=== PATIENT | female | born 1995 | race Caucasian/White ===

== ENCOUNTER 2023-02-06 10:06 | Emergency (ER) | payer BC, SELFPAY ==
--- NOTE | 2023-02-06 10:28 | XR_ITS ---
FINAL REPORT CLINICAL HISTORY: fall right lower leg and ankle pain prior sx to right ankle in 2012 COMPARISON: None FINDINGS: RIGHT ANKLE: Three views of the right ankle were obtained. There is no acute fracture or dislocation. Postoperative changes of the medial malleolus and talus. There are chronic calcifications inferior to the lateral malleolus. There are several loose bodies in the tibiotalar joint. The joint spaces and mortise are intact. There is no soft tissue abnormality. IMPRESSION: Postoperative and degenerative changes without acute bony abnormality. Reviewed, Interpreted and Dictated by Chance Lobo III, MD Transcribed by Park Rondon Authenticated and [facility]
--- NOTE | 2023-02-06 10:28 | XR_ITS ---
FINAL REPORT CLINICAL HISTORY: fall right knee pain and swelling COMPARISON: None FINDINGS: Three views of the right knee reveal a nondisplaced fracture at the base of the tibial spines. The bony alignment is normal. The joint spaces are preserved. There is a moderate joint effusion. No localized soft tissue abnormality is identified. IMPRESSION: Nondisplaced fracture at the base of the tibial spines with a moderate joint effusion. Reviewed, Interpreted and Dictated by Chance Lobo III, MD Transcribed by Park Rondon Authenticated and [facility]
--- NOTE | 2023-02-06 10:28 | XR_ITS ---
FINAL REPORT CLINICAL HISTORY: fall right knee pain and swelling prior sx in 2013 to right ankle COMPARISON: None FINDINGS: 2 views of the right tibia/fibula were obtained. There are postoperative changes of the medial malleolus and talus. There is no acute fracture or dislocation. The joint spaces are intact. There is no soft tissue abnormality. IMPRESSION: Postoperative changes without acute bony abnormality. Reviewed, Interpreted and Dictated by Chance Lobo III, MD Transcribed by Park Rondon Authenticated and [facility]
[2023-02-06 10:30] VITALS: BP 140/84; PULSE 87; RESP 18; TEMP 36.8; O2SAT 100; BMI 24.3
--- NOTE | 2023-02-06 10:46 | EXP.UTC ---
Discharge Plan Referrals Follow up/Referrals: Provider,Referral, [Primary Care Provider] - See instructions Lang Henao DO [Staff Physician] - See instructions (Call office for appointment) Activity Restrictions/Add. Instructions Additional Instructions/Restrictions: *RICE, Rest the extremity, Ice 15-20 minutes 3-4 times daily, Compress- wear the porsche wrap as discussed as much as possible to help reduce swelling and pain, Elevate the extremity when at rest *Knee immobilizer is for support and help control swelling. Be sure that is not to tight but not to loose either *Elevate when resting? *Ibuprofen 600-800mg every 6-8 hours as needed for pain an inflammation. If need something more can take Tylenol in between doses of Ibuprofen to help Immediately follow up with your family doctor for new or worsening of symptoms, or no noticeable improvement over the next 3-5 days Call Orthopedic office for appointment Clinical Impressions Clinical Impression: Closed fracture of tibial spine Qualifiers: Encounter type: initial encounter Fracture alignment: nondisplaced Laterality: right Qualified Code(s): S82.114A - Nondisplaced fracture of right tibial spine, initial encounter for closed fracture Stand Alone Forms Stand Alone Forms: Work/School Release Instructions Patient Instructions: How to Use Crutches, How to Use a Knee Immobilizer, How To Perform RICE (Rest, Ice, Compress, Elevate) Discharge ED Provider: Marla Fernandez [facility] General Stated complaint: [id number] right knee pain, home accident Mode of Arrival: Ambulatory Source of Information: Patient Limitations: No Limitations Time Seen by Provider: 02/06/23 10:40 Description of Symptoms (Recalled from Triage Doc. by RN): PATIENT C/O RIGHT KNEE INJURY AFTER FALLING OFF OF AN ELECTRIC SKATEBOARD YESTERDAY HEENT Symptoms (Recalled from RN notes): No Resp Symptoms (Recalled from RN notes): No Skin Symptoms (Recalled from RN notes): No MS Symptoms (Recalled from RN notes): Yes Functional Status (Recalled from RN notes): WNL History of Present Illness Provider Complaint: Patient states that she was riding an electric skateboard yesterday when she fell off State that she felt something pop in her knee and was having swelling in her lower leg and ankle area States that today she was unable to put weight on it so she came in to get it checked States that she has had previous surgery on the right ankle and was worried she may have broke something loose Related Data Allergies Allergy/AdvReac Type Severity Reaction Status Date / Time No Known Allergies Allergy Verified 02/06/23 10:44 Worker's Comp Is this a Worker's Comp case?: No [facility] Disclaimer: The information contained in this section may have been updated after the patient was seen, as this information can be updated by other users. Medical History (Updated 02/06/23 @ 12:19 by Marla Fernandez APRN) Anxiety Depression Urinary tract infection Social History Smoking Status: Unknown if ever smoked alcohol intake: never current occupational status: employed Travel in the last 8 weeks: None ROS Obtained: Yes All systems reviewed & no additional complaints except as documented and Yes Systems reviewed as appropriate & no additional complaints except as documented Constitutional Constitutional: Reports system reviewed and no additional complaints, except as documented and Reports as per HPI Respiratory Respiratory: Reports system reviewed and no additional complaints, except as documented and Reports as per HPI Gastrointestinal Gastrointestingal: Reports system reviewed and no additional complaints, except as documented and as per HPI Musculoskeletal Musculoskeletal: Reports system reviewed and no additional complaints, except as documented and Reports as per HPI Comments: Pain in knee, tib/fib and ankle after falling off skateboard yesterday Physical Exam General General appearanc
[2023-02-06 11:59] VITALS: BP 140/84; PULSE 87; RESP 18; TEMP 36.8; O2SAT 100
== END 2023-02-06 12:29 | disposition home or self-care (01) ==
LOC: UTC 10:13
PROVIDERS: Emergency Provider Nurse Practitioner; PCP Internal Medicine
DX: S82.114A Nondisplaced fracture of right tibial spine, initial encounter for closed fracture (principal); F41.9 Anxiety disorder, unspecified; F32.A Depression, unspecified; V00.131A Fall from skateboard, initial encounter
CPT/HCPCS: 73562; 73590; 73610; 99204; 99212; G0463